=== PATIENT | male | born 1980 | race Caucasian/White ===

== ENCOUNTER 2017-10-26 10:54 | Inpatient (IN) | payer OTHER ==
[2017-10-26] VITALS (8 sets, daily range): BP systolic 98–115; BP diastolic 55–73
[~2017-10-26] VITALS: Ht 196.8 cm; Wt 135.6 kg
[~2017-10-26 10:54] MED LIST: AMBIEN10 M1 ORAL; ARMOUR THYROID30 MG ORAL; CATAPRES0.1 MG ORAL; OMEPRAZOLE20 M3 ORAL; PERCOCET 10-321 EACH ORAL; WELLBUTRIN XL150 M3 ORAL
[2017-10-26] MEDS ORDERED: ALBUTEROL SULF8.5 GM INH (11:44)
[2017-10-26] MEDS ORDERED: Thrombin 5000 units spray kit TOPIC ONE (12:21)
[2017-10-26] MEDS ORDERED: Bupivacaine 0.5% Inj 30 ml vial INJ ONE (12:22)
[2017-10-26] MEDS ORDERED: Thrombin 5000 units TOPIC ONE (12:22)
[2017-10-26] MEDS ORDERED: Gelfoam Absorbable 1gm powder pkt TOPIC ONE (12:23)
[2017-10-26] MEDS ORDERED: Bacitracin 50000 Units Vial ONE (12:23)
[2017-10-26] MEDS ORDERED: EPINEPHrine 1mg/1ml Amp ONE (12:24)
[2017-10-26] MEDS ORDERED: LR 1000ml 1,000 ML IVLG SCH (12:27)
--- NOTE | 2017-10-26 12:27 | Anethesia Preoperative Eval ---
Anesthesia Pre-op PMH/ROS General Date of Evaluation: Oct 26, 2017 Time of Evaluation: 16:11 Anesthesiologist: Raoul ASA Score: ASA 3 Mallampati Score Class I : Soft palate, uvula, fauces, pillars visible Class II: Soft palate, uvula, fauces visible Class III: Soft palate, base of uvula visible Class IV: Only hard plate visible Mallampati Classification: Class II Surgeon: Davonte Diagnosis: Back Pain Surgical Procedure: R L4-5 Microdiscectomy Anesthesia History: none Family History: no anesthesia problems Allergies: Coded Allergies: [place] (Verified Allergy, Severe, 10/25/17) THOAT CLOSES UP. SOB BANANA (Verified Allergy, Severe, 10/25/17) throat starts to close, sob HONEY (Verified Allergy, Severe, 10/25/17) THROAT CLOSES UP/SOB/ [place] (Verified Allergy, Severe, 10/25/17) THROAT CLOSES UP, SOB MELON (Verified Allergy, Severe, 10/25/17) THROAT CLOSES UP/ SOB [place] (Verified Allergy, Severe, 10/25/17) THROAT CLOSES UP, SOB SPINACH (Verified Allergy, Severe, 10/26/17) anaphylactic shock [place] (Verified Allergy, Severe, 10/25/17) THROAT CLOSES UP, SOB Medications: see eMAR Past Medical History Cardiovascular: Reports: other - HL Pulmonary: Reports: asthma, other - Pneumonia Gastrointestinal/Genitourinary: Reports: GERD Neurologic/Psychiatric: Reports: depression/anxiety Endocrine: Reports: hypothyroidism - Thyroid CA Hematology/Immune: Reports: other - Thyroid CA Other: obesity - BMI 38 PSxH Narrative: Thyroidectomy, Appendectomy, L IHR Anesthesia Pre-op Phys. Exam Physician Exam Last Vital Signs Date Time Temp Pulse Resp B/P (MAP) Pulse Ox O2 Delivery O2 Flow Rate FiO2 10/26/17 11:44 98.2 55 20 115/73 95 Room Air 98.2 Constitutional: NAD Neurologic: CN 2-12 intact Cardiovascular: RRR Respiratory: CTA Gastrointestinal: S/NT/ND Airway Exam Mallampati Score: Class II MO: full ROM: full Teeth: intact Anesthesia Pre-op A/P Risk Assessment & Plan Assessment: ASA 3 Plan: GA, BIS, GlideScope Status Change Before Surgery: No Pre-Antibiotics Dru Grams Ancef IV Given Within 1 Hr of Incision: Yes Time Given: 16:31 Francois Silveira MD Oct 26, 2017 12:27
[2017-10-26] MEDS ORDERED: Midazolam 2mg/2ml Inj IVP PRN (12:30)
[2017-10-26] MEDS ORDERED: Labetalol 5mg/ml 20ml vial IV PRN (12:30)
[2017-10-26] MEDS ORDERED: Atropine Inj 1mg/10ml Syr IV PRN (12:30)
[2017-10-26] MEDS ORDERED: Metoclopramide 10mg/2ml Inj IVP PRN (12:30)
[2017-10-26] MEDS ORDERED: DiphenhydrAMINE 50mg/ml Inj IVP PRN (12:30)
[2017-10-26] MEDS ORDERED: LORazepam Inj 2mg/ml 1ml IV PRN (12:30)
[2017-10-26] MEDS ORDERED: Acetaminophen (Non formulary) 100 ML IV ONE (12:30)
[2017-10-26] MEDS ORDERED: HYDROcodone/Acetamin 7.5/325 tab ORAL PRN ×3 (12:30→16:30)
[2017-10-26] MEDS ORDERED: Hydromorphone 0.5mg/0.5ml inj IVP PRN ×2 (12:30→22:15)
[2017-10-26] MEDS ORDERED: Norco 5mg/325mg tab ORAL PRN (12:30)
[2017-10-26] MEDS ORDERED: fentaNYL 100 mcg/2 mL IV PRN (12:30)
[2017-10-26] MEDS ORDERED: oxyCODONE HCL/Acetaminophen 5/325mg ORAL PRN (12:30)
[2017-10-26] MEDS ORDERED: Ketorolac 30mg Inj IV PRN ×2 (12:30)
[2017-10-26] MEDS ORDERED: Propofol 1,000mg/ 100ml btl IV ONE (12:30)
[2017-10-26] MEDS ORDERED: Dexamethasone 4mg/ml vial ONE (12:34)
[2017-10-26] MEDS ORDERED: Sodium Chloride 10ml vial INJ ONE (12:34)
[2017-10-26] MEDS ORDERED: Lidocaine 1% MPF 10mg/ml 5ml ONE (12:34)
[2017-10-26] MEDS ORDERED: Lidocaine 1% Plain 30 ml INJ ONE ×2 (12:45→18:03)
--- NOTE | 2017-10-26 16:08 | Immediate Post-Op Evaluation ---
Immediate Post-Op Evalulation Immediate Post-Op Evalulation Procedure: R L4-5 Microdiscectomy Date of Evaluation: Oct 26, 2017 Time of Evaluation: 19:07 IV Fluids: 700 LR Blood Products: 0 Estimated Blood Loss: 20 Urinary Output: 150 Blood Pressure Systolic: 107 Blood Pressure Diastolic: 62 Pulse Rate: 72 Respiratory Rate: 16 O2 Sat by Pulse Oximetry: 98 Temperature (Fahrenheit): 99.1 Pain Score (1-10): 3 Nausea: No Vomiting: No Complications 0 Patient Status: none Hydration Status: adequate Dru Grams Ancef IV Given Within 1 Hr of Incision: Yes Time Given: 16:31 Francois Silveira MD Oct 26, 2017 16:08
[2017-10-26] MEDS ORDERED: NS Irrig 1000ml IRRIG ONE (16:20)
--- NOTE | 2017-10-26 16:20 | Pre-Procedure Note/Attestation ---
Pre-Procedure Note/Attestation Complete Prior to Procedure Planned Procedure: right Procedure Narrative: right l4/5 microdcompression Indications for Procedure Pre-Operative Diagnosis: Right L5 radiculopathy and stenosis HNP l4/5 Attestation I attest that I discussed the nature of the procedure; its benefits; risks and complications; and alternatives (and the risks and benefits of such alternatives ), prior to the procedure, with the patient (or the patient's legal patient financial representative). I attest that, if there was a reasonable possibility of needing a blood transfusion, the patient (or the patient's legal patient financial representative) was given the [facility] standardized written summary, pursuant to the [place] Blood Safety Act ([place] Health and Safety Code # 1645, as amended). I attest that I re-evaluated the patient just prior to the surgery and that there has been no change in the patient's H&P, except as documented below:None Jesús Arauz MD Oct 26, 2017 16:20
--- NOTE | 2017-10-26 16:22 | Brief Operative Note ---
Immediate Post Operative Note Operative Note Pre-op Diagnosis: Right L5 radiculopathy and stenosis HNP l4/5 Procedure: right L4/5 hemilaminotomy and mesial facetectomy and microdecompression Mod 22. BMI and complexity. Post-op Diagnosis: same Post-op Diagnosis: same as pre-op Findings: consistent w/pre-op dx studies Surgeon: nadine LAUREN Mandrel Puller: Eleazar Anesthesia: general Specimen: none Complications: none Condition: stable Fluids: per anesthesia records. Estimated Blood Loss: minimal Drains: none Implant(s) used?: No Jesús Arauz MD Oct 26, 2017 16:22
[2017-10-26] MEDS ORDERED: fentaNYL 100 mcg/2 mL IV ONE ×2 (17:00→18:21)
[2017-10-26] MEDS ORDERED: D5 1/2NS w/KCl 20mEq 1,000 ML IV SCH (21:00)
[2017-10-26] MEDS: Hydromorphone 0.5mg/0.5ml inj IVP PRN (23:56)
[2017-10-27] VITALS (7 sets, daily range): BP systolic 94–160; BP diastolic 64–85
[2017-10-27] MEDS ORDERED: ceFAZolin sod 1 GM in D5W 55 ML IV SCH ×2 (00:30→08:30)
[2017-10-27] MEDS: Hydromorphone 0.5mg/0.5ml inj IVP PRN (02:53)
[2017-10-27] MEDS ORDERED: Hydromorphone 0.5mg/0.5ml inj IVP PRN ×5 (06:00→18:32)
[2017-10-27] MEDS: D5 1/2NS w/KCl 20mEq 1,000 ML IV SCH ×3 (06:06→17:00)
[2017-10-27] MEDS ORDERED: HYDROcodone/Acetamin 7.5/325 tab ORAL PRN (07:30)
[2017-10-27] MEDS ORDERED: Docusate 100mg cap ORAL SCH ×3 (09:00)
[2017-10-27] MEDS ORDERED: BuPROPion XL 150mg tab ORAL SCH (09:00)
--- NOTE | 2017-10-27 11:01 | General Progress Note ---
Assessment/Plan Assessment/Plan Right L5 radiculopathy and stenosis HNP l4/5 right L4/5 hemilaminotomy and mesial facetectomy and microdecompression KIRK PLAN 1. incentive spirometry; BIPAP QHS 2. SCD 3. PT evaluation and therapy 4. Hydration 5. Pain management; avoid excessive sedation 6. discharge once stable with outpatient follow up Subjective Allergies: Coded Allergies: [place] (Verified Allergy, Severe, 10/25/17) THOAT CLOSES UP. SOB BANANA (Verified Allergy, Severe, 10/25/17) throat starts to close, sob HONEY (Verified Allergy, Severe, 10/25/17) THROAT CLOSES UP/SOB/ [place] (Verified Allergy, Severe, 10/25/17) THROAT CLOSES UP, SOB MELON (Verified Allergy, Severe, 10/25/17) THROAT CLOSES UP/ SOB [place] (Verified Allergy, Severe, 10/25/17) THROAT CLOSES UP, SOB [place] (Verified Allergy, Severe, 10/26/17) anaphylactic shock [place] (Verified Allergy, Severe, 10/25/17) THROAT CLOSES UP, SOB Subjective care noted had SCIENCE TUTOR stable currently Objective Last 24 Hour Vital Signs Date Time Temp Pulse Resp B/P (MAP) Pulse Ox O2 Delivery O2 Flow Rate FiO2 10/27/17 08:46 86 18 98 10/27/17 08:00 68 10/27/17 08:00 97.7 68 18 94/66 98 Nasal Cannula 3.0 97.7 10/27/17 06:54 40 10/27/17 04:45 85 15 2.0 30 10/27/17 04:43 85 15 98 Facial 30 10/27/17 04:00 98.7 107 18 160/85 92 Nasal Cannula 3.0 98.7 10/27/17 00:00 97.9 64 18 114/64 98 Nasal Cannula 2.0 97.9 10/26/17 20:05 98.8 10/26/17 19:55 98.8 68 15 115/70 98 Nasal Cannula 3 98.8 10/26/17 19:42 61 16 113/67 96 Nasal Cannula 3 10/26/17 19:42 99.0 10/26/17 19:25 60 15 104/59 99 Simple Mask 6 10/26/17 19:15 60 17 99/58 99 Simple Mask 6 10/26/17 19:05 63 21 99/55 99 Simple Mask 6 10/26/17 19:00 64 15 98/59 98 Simple Mask 6 10/26/17 18:57 210.4 72 16 98 10/26/17 18:56 99.1 79 16 107/60 98 Simple Mask 6 99.1 10/26/17 11:44 98.2 55 20 115/73 95 Room Air 98.2 Intake and Output 10/26/17 10/27/17 19:00 07:00 Intake Total 700 ml 1162.5 ml Output Total 170 ml Balance 530 ml 1162.5 ml Intake IV Total 700 ml 1162.5 ml Output Urine Total 150 ml Estimated Blood Loss 20 ml # Voids 1 Laboratory Tests 10/27/17 04:18: Arterial Blood pH 7.160*L, Arterial Blood Partial Pressure CO2 51.7H, Arterial Blood Partial Pressure O2 156.2H, Arterial Blood HCO3 18.0L, Arterial Blood Oxygen Saturation 98.5H, Arterial Blood Base Excess -10.9, Miguel Test Positive Height (Feet): 6 Height (Inches): 5.50 Weight (Pounds): 299 Objective WDWN NAD clear breath sounds bilaterally without rhonchi or wheeze [id number] without MRG NABS nontender no HSM no CCE nonfocal Steven Malave MD Oct 27, 2017 11:01
--- NOTE | 2017-10-27 11:31 | History and Physical ---
History of Present Illness General Date patient seen: Oct 27, 2017 Present Illness HPI 37 year old male with hx of obstructive sleep apnea and Right L5 radiculopathy and stenosis HNP l4/5 admitted for right L4/5 hemilaminotomy and mesial facetectomy and microdecompression. Afterwards, he was admitted to surgical floor for post operative care. Pt developed respiratory distress on the floor and was transferred to [facility]. Currently pt is awake and comfortable. Allergies: Coded Allergies: [place] (Verified Allergy, Severe, 10/25/17) THOAT CLOSES UP. SOB [place] (Verified Allergy, Severe, 10/25/17) throat starts to close, sob HONEY (Verified Allergy, Severe, 10/25/17) THROAT CLOSES UP/SOB/ [place] (Verified Allergy, Severe, 10/25/17) THROAT CLOSES UP, SOB MEL[place] (Verified Allergy, Severe, 10/25/17) THROAT CLOSES UP/ SOB [place] (Verified Allergy, Severe, 10/25/17) THROAT CLOSES UP, SOB [place] (Verified Allergy, Severe, 10/26/17) anaphylactic shock [place] (Verified Allergy, Severe, 10/25/17) THROAT CLOSES UP, SOB Medication History Scheduled Albuterol Sulfate* (Albuterol Sulfate Mdi*), 2 PUFF INH Q6H, (Reported) Bupropion HCl (Bupropion Xl), 150 MG ORAL DAILY, (Reported) Clonidine Hcl* (Catapres*), 0.1 MG ORAL DAILY, (Reported) Omeprazole (Omeprazole), 20 MG ORAL DAILY, (Reported) Thyroid* ([place] Thyroid*), 180 MG ORAL DAILY, (Reported) Scheduled PRN Oxycodone Hcl/Acetaminophen 10-325 Mg Tablet (Percocet 10-325 Mg Tablet*), 1 TAB ORAL Q4H PRN for For Pain, (Reported) Zolpidem Tartrate* (Ambien*), 10 MG ORAL HS PRN for Insomnia, (Reported) Patient History Healthcare decision maker ISAIAS JIN - Resuscitation status Full Code Advanced Directive on File Past Medical/Surgical History Past Medical/Surgical History: (1) KIRK (obstructive sleep apnea) (2) Thyroid cancer (3) Lumbar radiculopathy Review of Systems All Other Systems: negative except mentioned in HPI Physical Exam General Appearance: WD/WN Lines, tubes and drains: peripheral HEENT: normocephalic, atraumatic Neck: non-tender, normal alignment Respiratory/Chest: chest wall non-tender, lungs clear Cardiovascular/Chest: normal peripheral pulses, normal rate Abdomen: normal bowel sounds, non tender Genitourinary/Rectal: normal genital exam Extremities: normal range of motion Neurologic: edi analyst II-XII grossly normal Last 24 Hour Vital Signs Date Time Temp Pulse Resp B/P (MAP) Pulse Ox O2 Delivery O2 Flow Rate FiO2 10/27/17 08:46 86 18 98 10/27/17 08:00 68 10/27/17 08:00 97.7 68 18 94/66 98 Nasal Cannula 3.0 97.7 10/27/17 06:54 40 10/27/17 04:45 85 15 2.0 30 10/27/17 04:43 85 15 98 Facial 30 10/27/17 04:00 98.7 107 18 160/85 92 Nasal Cannula 3.0 98.7 10/27/17 00:00 97.9 64 18 114/64 98 Nasal Cannula 2.0 97.9 10/26/17 20:05 98.8 10/26/17 19:55 98.8 68 15 115/70 98 Nasal Cannula 3 98.8 10/26/17 19:42 61 16 113/67 96 Nasal Cannula 3 10/26/17 19:42 99.0 10/26/17 19:25 60 15 104/59 99 Simple Mask 6 10/26/17 19:15 60 17 99/58 99 Simple Mask 6 10/26/17 19:05 63 21 99/55 99 Simple Mask 6 10/26/17 19:00 64 15 98/59 98 Simple Mask 6 10/26/17 18:57 210.4 72 16 98 10/26/17 18:56 99.1 79 16 107/60 98 Simple Mask 6 99.1 10/26/17 11:44 98.2 55 20 115/73 95 Room Air 98.2 Intake and Output 10/26/17 10/27/17 19:00 07:00 Intake Total 700 ml 1162.5 ml Output Total 170 ml Balance 530 ml 1162.5 ml Intake IV Total 700 ml 1162.5 ml Output Urine Total 150 ml Estimated Blood Loss 20 ml # Voids 1 Laboratory Tests Test 10/27/17 04:18 Arterial Blood pH 7.160 (7.350-7.450) Arterial Blood Partial Pressure CO2 51.7 mmHg (35.0-45.0) H Arterial Blood Partial Pressure O2 156.2 mmHg (75.0-100.0) H Arterial Blood HCO3 18.0 mmol/L (22.0-26.0) L Arterial Blood Oxygen Saturation 98.5 % (92.0-98.0) H Arterial Blood Base Excess -10.9 Miguel Test Positive Height (Feet): 6 Height (Inches): 5.50 Weight (Pounds): 299 Medications Current Medications Medications (Trade) Dose Ordered Sig/Elis Route PRN Reason Start Time Stop Time Status Last Admin Dose Admin Acetaminophen (Tylenol) 650 mg Q4H PRN ORAL headache or temp>101 10/27/17 08:30 11/25/17 16:29 Acetaminophen/ Hydrocodone Bitart ([place] 7.5/325) 2 tab Q3H PRN ORAL pain scale 7-10 10/27/17 07:30 11/02/17 16:29 Bupropion HCl (Wellbutrin XL) 150 mg DAILY ORAL 10/27/17 09:00 11/26/17 08:59 10/27/17 09:12 Dextrose/ Electrolytes 1,000 ml @ 125 mls/hr Q8H IV 10/27/17 06:00 11/25/17 20:59 10/27/17 06:06 Docusate Sodium (Colace) 100 mg TWICE A DAY ORAL 10/27/17 09:00 11/26/17 08:59 10/27/17 08:08 Hydromorphone HCl (Dilaudid) 1 mg EVERY 3 HOURS PRN IVP Moderate Pain (Pain Scale 4-6) 10/27/17 06:00 11/02/17 22:14 Hydromorphone HCl (Dilaudid) 2 mg EVERY 3 HOURS PRN IVP Severe Pain (Pain Scale 7-10) 10/27/17 06:00 11/02/17 22:14 Ondansetron HCl (Zofran) 4 mg Q6H PRN IVP Nausea & Vomiting 10/27/17 10:30 11/25/17 16:29 Thyroid ([place] Thyroid) 180 mg DAILY ORAL 10/27/17 09:00 11/26/17 08:59 10/27/17 09:13 Assessment/Plan Problem List: (1) Acute respiratory failure ICD Codes: J96.00 - Acute respiratory failure, unspecified whether with hypoxia or hypercapnia SNOMED: 31244975 (2) Lumbar radiculopathy ICD Codes: M54.16 - Radiculopathy, lumbar region SNOMED: 055129882 (3) Thyroid cancer ICD Codes: C73 - Malignant neoplasm of thyroid gland SNOMED: 874055133 (4) KIRK (obstructive sleep apnea) ICD Codes: G47.33 - Obstructive sleep apnea (adult) (pediatric) SNOMED: 07386368 Assessment/Plan bipap PRN respiratory treatment titrate fio2 to sat of 92% avoid high doses of narcotics Alex Da Silva MD Oct 27, 2017 11:31
--- NOTE | 2017-10-27 12:01 | Orthopedic Spine Progress Note ---
Ortho Spine - Progress Note Subjective Symptoms: c/o right leg pain, improved - as compared to pre-op Objective Vital Signs: Last 24 Hour Vital Signs Date Time Temp Pulse Resp B/P (MAP) Pulse Ox O2 Delivery O2 Flow Rate FiO2 10/27/17 08:46 86 18 98 10/27/17 08:00 68 10/27/17 08:00 97.7 68 18 94/66 98 Nasal Cannula 3.0 97.7 10/27/17 06:54 40 10/27/17 04:45 85 15 2.0 30 10/27/17 04:43 85 15 98 Facial 30 10/27/17 04:00 98.7 107 18 160/85 92 Nasal Cannula 3.0 98.7 10/27/17 00:00 97.9 64 18 114/64 98 Nasal Cannula 2.0 97.9 10/26/17 20:05 98.8 10/26/17 19:55 98.8 68 15 115/70 98 Nasal Cannula 3 98.8 10/26/17 19:42 61 16 113/67 96 Nasal Cannula 3 10/26/17 19:42 99.0 10/26/17 19:25 60 15 104/59 99 Simple Mask 6 10/26/17 19:15 60 17 99/58 99 Simple Mask 6 10/26/17 19:05 63 21 99/55 99 Simple Mask 6 10/26/17 19:00 64 15 98/59 98 Simple Mask 6 10/26/17 18:57 210.4 72 16 98 10/26/17 18:56 99.1 79 16 107/60 98 Simple Mask 6 99.1 I&O: Intake and Output 10/26/17 10/27/17 19:00 07:00 Intake Total 700 ml 1162.5 ml Output Total 170 ml Balance 530 ml 1162.5 ml Intake IV Total 700 ml 1162.5 ml Output Urine Total 150 ml Estimated Blood Loss 20 ml # Voids 1 Wound: dry - dressing dry Neuro Status: stable - BLE 5/5 sens improved. Dysesthesia improved. Assessment Post-op Diagnosis: same Procedure Performed: right L4/5 hemilaminotomy and mesial facetectomy and microdecompression Mod 22. BMI and complexity. Plan Plan: PT, d/c antibiotics - Ambulate. Per nursing. not enough staff due to holiday. Patient large body habitus. No PT available today. DC liriano. Urinal. patient better neurologically. medically stable. Additional Comments: patient medically stable. DC liriano DC abx. Urge oral pain meds PRN. Dilaudid 0.5mg only for breakthrough. Advised nurse. Jesús Arauz MD Oct 27, 2017 12:01
--- NOTE | 2017-10-27 13:44 | 48 Hour Post Anesthesia Eval ---
Post Anesthesia Evaluation Procedure: R L4-5 Microdiscectomy Date of Evaluation: Oct 27, 2017 Time of Evaluation: 12:00 Blood Pressure Systolic: 111 0: 73 Pulse Rate: 62 Respiratory Rate: 20 Temperature (Fahrenheit): 98 O2 Sat by Pulse Oximetry: 100 Airway: patent Nausea: No Vomiting: No Pain Intensity: 0 Hydration Status: adequate Mental Status/LOC: patient returned to baseline Follow-up Care/Observations: pt doing well. vss, awake , comfortable. Earlier transferred to direct observation unit after altered status secondary to pain medication Post-Anesthesia Complications: none Follow-up care needed: N/A Ana De Leon M.D. Oct 27, 2017 13:44
[2017-10-27] MEDS ORDERED: Tubing IV Secondary IV ONE (15:53)
[2017-10-27] MEDS: Docusate 100mg cap ORAL SCH (17:29)
[2017-10-27] MEDS: HYDROcodone/Acetamin 7.5/325 tab ORAL PRN (19:54)
--- NOTE | 2017-10-27 20:00 | Operative Note - Dictated ---
DATE OF OPERATION: 10/27/2017 "NOTE: POOR AUDIO QUALITY" PREOPERATIVE DIAGNOSIS: Intractable right-sided lumbar radiculopathy, L4-L5. POSTOPERATIVE DIAGNOSIS: Intractable right-sided lumbar radiculopathy, L4-L5. PROCEDURES: 1. Right L4-L5 hemilaminotomy decompression, foraminotomy, and microdecompression. 2. Use of microscope. 3. Modifier 22 positive as the patient has significantly high BMI, large body habitus, and increased complexity fracture due to the . SURGEON: Jesús Arauz M.D. LIBRARY AIDE: . ANESTHESIOLOGIST: Francois Silveira M.D. ANESTHESIA: General endotracheal combined anesthetic. INTRAOPERATIVE FINDINGS: Stenosis noted in the right L4-L5 paraspinal musculature. No needed. Disk protrusion noted at L4-L5 right side. BLOOD LOSS: Less than 100 mL. IV FLUIDS: Per anesthesia records. URINE OUTPUT: Per anesthesia records. INDICATIONS FOR PROCEDURE: This is a 37-year-old gentleman with significant injury. He had intractable lumbar radiculopathy/radiculitis. MRI demonstrated consistent findings with stenosis at L4-L5. Disk protrusion noted compressing the lateral recess and the traversing L5 nerve root. The patient has corroborating symptomatology through the MRI. The patient was indicated for surgery. He had very time for his injury to improve. He had failed a reasonable amount of his conservative treatment. Discussed the risks and benefits of surgery. No guarantees of outcome were given. The patient was preoperatively cleared. DESCRIPTION OF SURGERY: Subsequently, the patient was taken to the operating room and intubated by the anesthesiologist. Appropriate lines were inserted and the patient was positioned on the Higinio multi-padded table with the abdomen hanging free. Eyes and genitalia were protected standard physiologic position. noted. The patient was subsequently marked in the region and prepped and draped in usual sterile fashion and traction was placed in the usual customary fashion. Subsequently, incision was made at the cervical collar. Approximately, incision and exposed the L4-L5 side. The L4-L5 level was identified with localized x-ray and subsequently, microscope was pulled in to view. There was significant depth of the wound. There is a thickness ____. A longus retractor was utilized and this further significant difficulty with exposure. Once the microscope was placed into view, I was able to safely perform a laminotomy at L4 and L5 near ligamentum flavum. There was significant epidural venous bleeding as well as inflamed dura and traversing L5 nerve root. Disk protrusion was noted compressing the L5 nerve root. Once the decompression was completed, the adequate rim was given to the L5 nerve root to dorsally translate. Bleeding was cauterized with bipolar. Hemostasis was utilized with FloSeal, direct pressure into the ring, as well as bipolar. The wound was copiously irrigated multiple times and multilayer closure was performed with #1 Vicryl for the fascia, 2-0 Vicryl and 3-0 Monocryl for the skin. The patient was safely taken off the operating table with spine lift team. The patient was transferred to the PACU and subsequently moved to . POSTOP CONDITION: . Jesús Arauz M.D. DR: SHORTY JOB#: [id number] CC:
[2017-10-28] MEDS: D5 1/2NS w/KCl 20mEq 1,000 ML IV SCH (01:00)
[2017-10-28] MEDS: HYDROcodone/Acetamin 7.5/325 tab ORAL PRN ×3 (03:09→19:33)
[2017-10-28 04:00] VITALS: BP 135/70
[2017-10-28] MEDS ORDERED: Hydromorphone 0.5mg/0.5ml inj SUBQ PRN (07:50)
[2017-10-28 08:00] VITALS: BP 152/85
--- NOTE | 2017-10-28 08:33 | General Progress Note ---
Assessment/Plan Assessment/Plan Right L5 radiculopathy and stenosis HNP l4/5 right L4/5 hemilaminotomy and mesial facetectomy and microdecompression KIRK PLAN 1. incentive spirometry; BIPAP QHS at home; get ABG prior to dc 2. SCD 3. PT evaluation completed 4. Hydration 5. Pain management; avoid excessive sedation 6. discharge today; patient eating and ambulating; has percocet and flexeril at home Subjective Allergies: Coded Allergies: [place] (Verified Allergy, Severe, 10/25/17) THOAT CLOSES UP. SOB [place] (Verified Allergy, Severe, 10/25/17) throat starts to close, sob HONEY (Verified Allergy, Severe, 10/25/17) THROAT CLOSES UP/SOB/ [place] (Verified Allergy, Severe, 10/25/17) THROAT CLOSES UP, SOB MELON (Verified Allergy, Severe, 10/25/17) THROAT CLOSES UP/ SOB [place] (Verified Allergy, Severe, 10/25/17) THROAT CLOSES UP, SOB [place] (Verified Allergy, Severe, 10/26/17) anaphylactic shock [place] (Verified Allergy, Severe, 10/25/17) THROAT CLOSES UP, SOB Subjective care noted stable overnight pain better Objective Last 24 Hour Vital Signs Date Time Temp Pulse Resp B/P (MAP) Pulse Ox O2 Delivery O2 Flow Rate FiO2 10/28/17 08:00 99.3 90 20 152/85 95 Room Air 99.3 10/28/17 04:00 99.4 90 18 135/70 96 Nasal Cannula 2.0 99.4 10/28/17 03:09 98.5 10/27/17 23:40 82 18 Nasal Cannula 3.0 32 10/27/17 23:40 95 Nasal Cannula 3.0 32 10/27/17 23:40 Nasal Cannula 3.0 32 10/27/17 20:00 98.5 76 18 113/70 96 Nasal Cannula 3.0 98.5 10/27/17 16:40 98.5 69 18 116/72 100 Nasal Cannula 3.0 98.5 10/27/17 16:00 98.1 68 18 115/75 100 Nasal Cannula 3.0 98.1 10/27/17 16:00 64 10/27/17 13:44 208.4 62 20 100 10/27/17 12:00 98.2 62 20 111/73 100 Nasal Cannula 3.0 98.2 10/27/17 12:00 62 10/27/17 08:46 86 18 98 Intake and Output 10/27/17 10/28/17 19:00 07:00 Intake Total 1297 ml Output Total 1300 ml Balance -3 ml Intake IV Total 1297 ml Output Urine Total 1300 ml Height (Feet): 6 Height (Inches): 5.50 Weight (Pounds): 299 Objective WDWN NAD clear breath sounds bilaterally without rhonchi or wheeze [id number] without MRG NABS nontender no HSM no CCE nonfocal Steven Malave MD Oct 28, 2017 08:33
[2017-10-28] MEDS ORDERED: BuPROPion XL 150mg tab ORAL SCH (09:00)
[2017-10-28] MEDS: Docusate 100mg cap ORAL SCH ×2 (09:05→17:57)
--- NOTE | 2017-10-28 11:31 | Diagnostic Imaging Report ---
Indication: Pain, spinal surgery Technique: 2 intraoperative fluoroscopic image of the lumbosacral spine submitted for archival the PACS. Operating surgeon: Davonte Total fluoroscopy time: 3 seconds Total fluoroscopy dose: 1.74 mGy Comparison: None Findings: Two intraoperative fluoroscopic images of the lumbosacral submitted for archival the PACS. . Second image demonstrates surgical instruments projecting over the level of L5-S1. Impression: Fluoroscopic intraoperative images from spinal surgery submitted for archival the PACS. Please see operative report.
[2017-10-28 11:57] VITALS: BP 141/87
[2017-10-28] MEDS ORDERED: Cyclobenzaprine 10mg Tab ORAL PRN (12:45)
[2017-10-28 16:00] VITALS: BP 124/63
[2017-10-28] MEDS ORDERED: Miralax 17gm pkt ORAL SCH (18:00)
--- NOTE | 2017-10-29 10:22 | Discharge Summary ---
Discharge Summary Discharge Summary _ DATE OF ADMISSION: 10/26/2017 DATE OF DISCHARGE: 10/28/2017 SURGEON: Dr. Jesús Arauz BRIEF HOSPITAL COURSE: Patient is a 37-year-old male with intractable lumbar radiculopathy and radiculitis. MRI demonstrated findings consistent with stenosis at L4-L5 with disc protrusion compressing the lateral recess and traversing the L5 nerve root. He was admitted on 10/26/2017, and underwent right L4-L5 hemilaminotomy. He tolerated procedure well and postoperatively was admitted to [facility] floor. He was continued on IV fluid and was given pain management. He was given KIET hose and SCDs for DVT prophylaxis. He has history of sleep apnea and postoperatively developed respiratory distress. He was transferred to [facility]. He was placed on BiPAP q hs.. He was encouraged use of incentive spirometry. He was given IV hydration. ABG improved. He was transferred back to [facility]. He underwent PT and OT. He had good pain control and was ambulating well with front-wheeled walker. He was cleared for discharge home. FINAL DIAGNOSES: Right L5 radiculopathy with stenosis Herniated nucleus pulposus L4-L5 Status post right L4-L5 hemilaminotomy and medial facetectomy and microdecompression Obstructive sleep apnea DISPOSITION: Patient was discharged home. DISCHARGE MEDICATIONS: Refer to Discharge Medication List. DISCHARGE INSTRUCTIONS: Follow up with surgeon in a week. I have been assigned to dictate discharge summary on this account, and I was not involved in the patient's management. Judith Barnard NP Oct 29, 2017 10:21
== END 2017-10-28 20:30 | disposition home or self-care (01) | DRG 517 ==
LOC: SDSOVERFLO 10:54 → EDSEX 12:30 → 3E 20:00 → 2W 10-27 04:40 → 3E 10-27 16:36
PROC: 01NB0ZZ Release Lumbar Nerve, Open Approach (ICD-10-PCS; principal; 2017-10-27)
DX: M51.16 Intervertebral disc disorders with radiculopathy, lumbar region (principal); M48.061 Spinal stenosis, lumbar region without neurogenic claudication; G47.33 Obstructive sleep apnea (adult) (pediatric); R06.03 Acute respiratory distress; Z85.850 Personal history of malignant neoplasm of thyroid
CPT/HCPCS: 36600; 72020; 76000; 82803; 82962; 87081; 94003; 94150; 94660; 94664; 94760; J2405